=== PATIENT | male | born 1960 | race Caucasian/White ===

== ENCOUNTER → 2016-04-23 | Outpatient (CLI) | payer BC ==
[~2016-04-23] MED LIST: AMLODIPINE BESYL5 MG; AMLODIPINE BESYL5 MG PO; AMOXICILLIN500 MG PO; ANTI DEPRESSANT; ASPIR 8181 M1 PO; ASPIR-TRIN325 M1 PO; ASPIRIN325 MG PO; ATIVAN1 MG PO; ATORVASTATIN 40 MG T; Aspirin PO; Ativan PO; CARAFATE100 MG/ML PO; CLARITHROMYCIN500 MG PO; ICY HOT CREAM35.4 G1 TP; LEVBID0.375 MG PO; LIPITOR40 MG PO; LIPITOR80 MG PO; LISINOPRIL-HCT1 EAC3; LISINOPRIL-HCT1 EAC3 PO; LO-DOSE ASPIRIN81 M2 PO; LORAZEPAM1 MG PO; Lipitor PO; METFORMIN HCL500 MG PO; METOPROLOL SUCC25 MG; METOPROLOL SUCC25 MG PO; NEXIUM20 MG PO; NITROSTAT0.4 MG SL; NORVASC2.5 MG PO; Norvasc PO; PANTOPRAZOLE SO40 MG PO; PLAVIX75 MG PO; PROTONIX40 MG PO; Plavix PO; Protonix PO; TOPROL XL25 MG PO; TRAMADOL HCL50 MG PO; TYLENOL EXTRA500 MG PO; Toprol XL PO; ZANTAC300 MG PO; ZESTORETIC 20-1 EAC2 PO; Zantac PO; Zestoretic,Prinzide PO; [UNRECOGNIZED DRUG - REMARK]
== END | disposition home or self-care (01) ==
LOC: RES 07:15
DX: M54.2 Cervicalgia (principal); R06.09 Other forms of dyspnea; Z87.891 Personal history of nicotine dependence; M47.812 Spondylosis without myelopathy or radiculopathy, cervical region; M47.816 Spondylosis without myelopathy or radiculopathy, lumbar region; M25.78 Osteophyte, vertebrae
CPT/HCPCS: 72050; 72100; 94060; 94726; 94729

== ENCOUNTER 2017-01-21 16:25 | Observation (INO) | payer BC ==
[~2017-01-21] VITALS: Ht 180.3 cm; Wt 156.8 kg
[2017-01-21 17:38] LABS: HEMATOCRIT 39.2 % (38.0-50.0); MCH 27.9 PG (29.0-34.0); MCHC 32.4 G/DL (30.0-36.0); MEAN PLAT.VOLUME 9.9 uM^3 (9.0-12.4); PLATELET COUNT 291 K/uL (156-360); RBC DIS.WIDTH-CV 14.6 % (11.8-14.6); RBC DIS.WIDTH-SD 46.7 % (39-53); RED BLOOD COUNT 4.56 M/uL (4.00-5.50); WHITE BLOOD COUNT 10.3 K/uL (4.1-10.2)
[2017-01-21 17:48] LABS: CHLORIDE 103 mEq/L (99-109); POTASSIUM 3.8 mEq/L (3.7-5.4); SODIUM 139 mEq/L (136-147)
[2017-01-21 17:49] LABS: GLUCOSE 109 mg/dL (70-99)
[2017-01-21 17:51] LABS: ANION GAP 10 MEQ/L (2-14)
[2017-01-21 17:53] LABS: GFR ESTIMATE (CALCULATED) > 59 mL/min/
[2017-01-21 17:54] LABS: UREA NITROGEN (BUN) 14 mg/dL (9-23)
[2017-01-21 18:02] LABS: TROP-I INTERPRETATION NEGATIVE; TROPONIN-I < 0.01 ng/mL (0.0-0.30)
[2017-01-21] MEDS ORDERED: CRESTOR20 MG PO (19:29)
[2017-01-21] MEDS ORDERED: HYDROCHLOROTH12.5 M3 PO (19:30)
[2017-01-21] MEDS ORDERED: PERCOCET 10/1 TABLET PO (19:31)
[2017-01-21] MEDS ORDERED: GABAPENTIN300 MG PO ×2 (19:34)
[2017-01-21] MEDS ORDERED: ZANAFLEX4 M1 PO (19:36)
[2017-01-21] MEDS ORDERED: OXYCONTIN20 MG PO (19:37)
[2017-01-21] MEDS ORDERED: ZOLOFT50 MG PO (19:39)
[2017-01-21 22:53] VITALS: BP 136/72
[2017-01-22 00:03] LABS: TROP-I INTERPRETATION NEGATIVE; TROPONIN-I < 0.01 ng/mL (0.0-0.30)
[2017-01-22 04:00] VITALS: BP 136/77
[2017-01-22 05:42] LABS: HEMATOCRIT 39.1 % (38.0-50.0); MCH 26.9 PG (29.0-34.0); MCHC 30.9 G/DL (30.0-36.0); MCV 87.1 FL (86-99); PLATELET COUNT 308 K/uL (156-360); RBC DIS.WIDTH-CV 14.8 % (11.8-14.6); RBC DIS.WIDTH-SD 47.3 % (39-53); RED BLOOD COUNT 4.49 M/uL (4.00-5.50); WHITE BLOOD COUNT 7.1 K/uL (4.1-10.2)
[2017-01-22 06:04] LABS: TROP-I INTERPRETATION NEGATIVE; TROPONIN-I < 0.01 ng/mL (0.0-0.30)
[2017-01-22 06:30] LABS: ANION GAP 10 MEQ/L (2-14); CHLORIDE 105 MEQ/L (99-109); GFR ESTIMATE (CALCULATED) > 59 mL/min/; GLUCOSE 97 mg/dL (70-99); POTASSIUM 4.3 MEQ/L (3.7-5.4); SAMPLE HEMOLYSIS CHECK 0; SAMPLE ICTERIC CHECK 0; SAMPLE LIPEMIA CHECK 0; SODIUM 141 MEQ/L (136-147); UREA NITROGEN (BUN) 19 mg/dL (9-23)
[2017-01-22 06:55] VITALS: BP 132/68
[2017-01-22 08:04] LABS: POINT-OF-CARE METER ID UU13113831
[2017-01-22 10:37] VITALS: BP 163/76
== END 2017-01-22 12:36 | disposition home or self-care (01) ==
LOC: EME → EDBD 16:25 → EDOF 21:20 → 5WEST 21:20 → ENRESERV 21:21 → 5WEST 22:47
PROVIDERS: Emergency Medicine; Hospitalist
DX: R07.89 Other chest pain (principal); K29.70 Gastritis, unspecified, without bleeding; K21.9 Gastro-esophageal reflux disease without esophagitis; I10 Essential (primary) hypertension; E11.9 Type 2 diabetes mellitus without complications; J44.9 Chronic obstructive pulmonary disease, unspecified; I25.10 Atherosclerotic heart disease of native coronary artery without angina pectoris; Z95.5 Presence of coronary angioplasty implant and graft; Z86.19 Personal history of other infectious and parasitic diseases; G47.33 Obstructive sleep apnea (adult) (pediatric); E78.5 Hyperlipidemia, unspecified; Z87.891 Personal history of nicotine dependence; Z83.3 Family history of diabetes mellitus; Z90.49 Acquired absence of other specified parts of digestive tract
CPT/HCPCS: 71020; 80048; 82948; 84484; 85027; 93005; 99281; 99285; G0378; J1644; J2270

== ENCOUNTER 2017-01-27 14:58 | Emergency (ER) | payer BC ==
[~2017-01-27] VITALS: Ht 180.3 cm; Wt 155.7 kg
[~2017-01-27 14:58] MED LIST changes: +CRESTOR20 MG PO; +GABAPENTIN300 MG PO; +HYDROCHLOROTH12.5 M3 PO; +OXYCONTIN20 MG PO; +PERCOCET 10/1 TABLET PO; +ZANAFLEX4 M1 PO; +ZOLOFT50 MG PO
[2017-01-27 16:12] LABS: HEMATOCRIT 46.6 % (38.0-50.0); MCH 27.8 PG (29.0-34.0); MCHC 32.4 G/DL (30.0-36.0); MCV 85.7 FL (86-99); MEAN PLAT.VOLUME 9.7 uM^3 (9.0-12.4); PLATELET COUNT 361 K/uL (156-360); RBC DIS.WIDTH-CV 14.7 % (11.8-14.6); RBC DIS.WIDTH-SD 46.3 % (39-53)
[2017-01-27 16:13] LABS: RED BLOOD COUNT 5.44 M/uL (4.00-5.50)
[2017-01-27 16:17] LABS: CHLORIDE 99 mEq/L (99-109); SODIUM 135 mEq/L (136-147)
[2017-01-27 16:19] LABS: GLUCOSE 107 mg/dL (70-99)
[2017-01-27 16:20] LABS: ANION GAP 12 MEQ/L (2-14)
[2017-01-27 16:23] LABS: GFR ESTIMATE (CALCULATED) > 59 mL/min/
[2017-01-27 16:24] LABS: UREA NITROGEN (BUN) 19 mg/dL (9-23)
[2017-01-27 16:30] LABS: TROP-I INTERPRETATION NEGATIVE; TROPONIN-I < 0.01 ng/mL (0.0-0.30)
[2017-01-27 16:37] LABS: TOTAL BILIRUBIN 0.7 mg/dL (0.0-1.0)
[2017-01-27 16:38] LABS: ALKALINE PHOSPHATASE 86 IU/L (3-129)
[2017-01-27 16:40] LABS: DIRECT BILIRUBIN 0.2 mg/dL (0.0-0.3)
[2017-01-27 16:41] LABS: LIPASE 39 U/L (1.0-51.0)
[2017-01-27 19:10] LABS: ADD MIUA? NO; BILIRUBIN NEGATIVE; BLOOD NEGATIVE; COLOR YELLOW ((YELLOW)); GLUCOSE (STRIP) NEGATIVE; KETONES NEGATIVE; LEUKOCYTES NEGATIVE; NITRITE NEGATIVE; PROTEIN (STRIP) NEGATIVE; SPECIFIC GRAVITY 1.031 (1.000-1.030); UROBILINOGEN 0.2 MG/DL (0.2-1.0)
[2017-01-27] MEDS ORDERED: ZOFRAN ODT4 MG PO (19:47)
[2017-01-27] MEDS ORDERED: SIMETHICONE80 MG PO (19:47)
[2017-01-27] MEDS ORDERED: ZANTAC150 MG PO (19:47)
[2017-01-27] MEDS ORDERED: CARAFATE1 GM PO (19:47)
[2017-01-27 19:56] VITALS: BP 161/87
== END 2017-01-27 19:57 | disposition home or self-care (01) ==
LOC: EME 14:58
PROVIDERS: Nurse Practitioner Family
DX: K29.70 Gastritis, unspecified, without bleeding (principal); K21.9 Gastro-esophageal reflux disease without esophagitis; B34.9 Viral infection, unspecified; Z86.19 Personal history of other infectious and parasitic diseases; E78.5 Hyperlipidemia, unspecified; I10 Essential (primary) hypertension; I25.2 Old myocardial infarction; F32.9 Major depressive disorder, single episode, unspecified; G43.909 Migraine, unspecified, not intractable, without status migrainosus; Z87.442 Personal history of urinary calculi; Z79.82 Long term (current) use of aspirin; Z87.891 Personal history of nicotine dependence
CPT/HCPCS: 71020; 74177; 80048; 80076; 81003; 83690; 84484; 85027; 93005; 99281; 99285; J2765; J7030

== ENCOUNTER → 2017-02-13 | Outpatient (CLI) | payer BC ==
[~2017-02-13] VITALS: Ht 180.3 cm; Wt 149.6 kg
[~2017-02-13] MED LIST changes: +CARAFATE1 GM PO; -GABAPENTIN300 MG PO; +NEURONTIN100 MG PO; +SIMETHICONE80 MG PO; -TOPROL XL25 MG PO; +TOPROL XL50 MG PO; +ZANTAC150 MG PO; +ZOFRAN ODT4 MG PO
[2017-02-13 10:43] LABS: POINT-OF-CARE METER ID UU14107333
[2017-02-13 12:41] LABS: POINT-OF-CARE METER ID UU13113819
== END | disposition home or self-care (01) ==
LOC: AMB 09:42
PROVIDERS: Internal Medicine
DX: K29.70 Gastritis, unspecified, without bleeding (principal); K31.89 Other diseases of stomach and duodenum; Z79.82 Long term (current) use of aspirin; Z79.84 Long term (current) use of oral hypoglycemic drugs; Z79.02 Long term (current) use of antithrombotics/antiplatelets; K21.9 Gastro-esophageal reflux disease without esophagitis; Z86.19 Personal history of other infectious and parasitic diseases; E78.00 Pure hypercholesterolemia, unspecified; I10 Essential (primary) hypertension; E66.01 Morbid (severe) obesity due to excess calories; Z68.42 Body mass index [BMI] 45.0-49.9, adult; G47.33 Obstructive sleep apnea (adult) (pediatric); M17.0 Bilateral primary osteoarthritis of knee; R73.03 Prediabetes; Z86.010 Personal history of colon polyps; Z90.49 Acquired absence of other specified parts of digestive tract; Z82.49 Family history of ischemic heart disease and other diseases of the circulatory system; Z83.3 Family history of diabetes mellitus; Z87.891 Personal history of nicotine dependence
CPT/HCPCS: 82948; 88305; 88342 TC; J2250

== ENCOUNTER 2017-07-15 12:27 | Observation (INO) | payer BC ==
[~2017-07-15] VITALS: Ht 182.9 cm; Wt 172.6 kg
[~2017-07-15 12:27] MED LIST changes: +ZOLOFT100 MG PO; -ZOLOFT50 MG PO
[2017-07-15 13:57] LABS: APPEARANCE CLEAR ((CLEAR)); BILIRUBIN NEGATIVE; BLOOD SMALL; COLOR STRAW ((YELLOW)); GLUCOSE (STRIP) NEGATIVE; KETONES NEGATIVE; LEUKOCYTES NEGATIVE; NITRITE NEGATIVE; PROTEIN (STRIP) NEGATIVE; SPECIFIC GRAVITY 1.005 (1.000-1.030); UROBILINOGEN 0.2 MG/DL (0.2-1.0)
[2017-07-15 13:59] LABS: BACTERIA RARE /HPF; EPITHELIAL CELLS NONE SEEN /HPF; MUCUS NONE SEEN /LPF; RED BLOOD CELLS 0-5 /HPF (0-5); WHITE BLOOD CELLS 0-5 /HPF (0-5)
[2017-07-15 14:04] LABS: CHLORIDE 105 mEq/L (99-109); POTASSIUM 3.9 mEq/L (3.7-5.4); SODIUM 141 mEq/L (136-147)
[2017-07-15 14:06] LABS: GLUCOSE 105 mg/dL (70-99)
[2017-07-15 14:09] LABS: CREATININE 0.8 mg/dL (0.6-1.3); GFR ESTIMATE (CALCULATED) > 59 mL/min/ (58.99-99999)
[2017-07-15 14:10] LABS: UREA NITROGEN (BUN) 16 mg/dL (9-23)
[2017-07-15 15:25] LABS: TROP-I INTERPRETATION NEGATIVE; TROPONIN-I < 0.01 ng/mL (0.0-0.30)
[2017-07-15] MEDS ORDERED: GABAPENTIN100 MG PO (16:30)
[2017-07-15] MEDS ORDERED: COZAAR50 MG PO (16:31)
[2017-07-15] MEDS ORDERED: NITROSTAT0.4 MG SL (16:34)
[2017-07-15] MEDS ORDERED: BUSPAR10 MG PO (16:34)
[2017-07-15] MEDS ORDERED: MORPHABOND ER15 MG PO (16:34)
[2017-07-15] MEDS ORDERED: FLEXERIL10 MG PO (16:34)
[2017-07-15] MEDS ORDERED: SYMPROIC0.2 MG PO (16:35)
[2017-07-15] MEDS ORDERED: OXYCONTIN20 MG PO (16:37)
[2017-07-15 17:32] VITALS: BP 167/78
[2017-07-15 19:30] VITALS: BP 146/71
[2017-07-15 23:46] VITALS: BP 134/67
[2017-07-16 01:11] LABS: TROP-I INTERPRETATION NEGATIVE; TROPONIN-I < 0.01 ng/mL (0.0-0.30)
[2017-07-16 03:30] VITALS: BP 147/78
[2017-07-16 05:43] LABS: TROP-I INTERPRETATION NEGATIVE; TROPONIN-I < 0.01 ng/mL (0.0-0.30)
[2017-07-16 05:56] LABS: CHLORIDE 105 MEQ/L (99-109); CREATININE 0.7 MG/DL (0.6-1.3); GFR ESTIMATE (CALCULATED) > 59 mL/min/ (58.99-99999); GLUCOSE 124 mg/dL (70-99); POTASSIUM 3.7 MEQ/L (3.7-5.4); SODIUM 142 MEQ/L (136-147); UREA NITROGEN (BUN) 16 mg/dL (9-23)
[2017-07-16 07:07] VITALS: BP 134/86
[2017-07-16 08:14] LABS: BASOPHIL (%) 0.5 % (0-1); EOSINOPHIL (%) 3.4 % (0-5); EOSINOPHIL COUNT 0.3 K/uL (0-0.3); HEMATOCRIT 41.1 % (38.0-50.0); HEMOGLOBIN 12.9 G/DL (12.5-16.6); IMMATURE GRANULOCYTE (%) 0.5 % (0.0-0.7); LYMPHOCYTE (%) 17.2 % (15-42); LYMPHOCYTE COUNT 1.3 K/uL (1.0-2.8); MCH 26.5 PG (29.0-34.0); MCHC 31.4 G/DL (30.0-36.0); MCV 84.6 FL (86-99); MONOCYTE (%) 11.6 % (3-12); MONOCYTE COUNT 0.9 K/uL (0-0.8); NEUTROPHIL (%) 66.8 % (45-76); NEUTROPHIL COUNT 4.9 K/uL (1.8-6.4); PLATELET COUNT 301 K/uL (156-360); RBC DIS.WIDTH-CV 15.5 % (11.8-14.6); RBC DIS.WIDTH-SD 47.9 % (39-53); RED BLOOD COUNT 4.86 M/uL (4.00-5.50); WHITE BLOOD COUNT 7.3 K/uL (4.1-10.2)
[2017-07-16 11:21] VITALS: BP 146/78
[2017-07-16] MEDS ORDERED: TOPROL XL50 MG PO (12:20)
[2017-07-16] MEDS ORDERED: LOSARTAN POTAS100 MG PO (12:21)
[2017-07-16] MEDS ORDERED: HYDROCHLOROTHIA25 MG PO (12:21)
== END 2017-07-16 13:43 | disposition home or self-care (01) ==
LOC: EME 12:27 → EDOF 15:47 → 4SOUTH 15:47 → ENRESERV 16:02 → 4SOUTH 17:24
PROVIDERS: Family Medicine; Physician Assistant
DX: R07.9 Chest pain, unspecified (principal); I10 Essential (primary) hypertension; I25.10 Atherosclerotic heart disease of native coronary artery without angina pectoris; E66.01 Morbid (severe) obesity due to excess calories; E11.9 Type 2 diabetes mellitus without complications; E78.5 Hyperlipidemia, unspecified; Z87.891 Personal history of nicotine dependence; M17.0 Bilateral primary osteoarthritis of knee; Z95.5 Presence of coronary angioplasty implant and graft; K21.9 Gastro-esophageal reflux disease without esophagitis; G47.33 Obstructive sleep apnea (adult) (pediatric); Z86.19 Personal history of other infectious and parasitic diseases; Z79.84 Long term (current) use of oral hypoglycemic drugs; Z79.82 Long term (current) use of aspirin; Z79.02 Long term (current) use of antithrombotics/antiplatelets
CPT/HCPCS: 70450; 71046; 80048; 81003; 83880; 84484; 85025; 93005; 99281; 99285; G0378; J1650